=== PATIENT | female | born 1980 | race Caucasian/White ===

== ENCOUNTER 2022-05-27 15:39 | Emergency (ER) | payer OTHER, SELFPAY ==
[2022-05-27 15:52] VITALS: BP 120/64; PULSE 106; RESP 16; TEMP 36.8; O2SAT 99
--- NOTE | 2022-05-27 16:50 | ED.GENADULT ---
HPI - General Adult General Chief complaint: Upper Respiratory Infection Stated complaint: Sore throat Source: patient Mode of arrival: ambulatory Limitations: no limitations History of Present Illness HPI narrative: Patient presents for evaluation of sore throat since last night. No fever, chills, nausea, vomiting, cough, ear pain, shortness of breath or diarrhea. No recent sick contacts to her knowledge. She is not taking any medication to assist with her symptoms. She does not smoke. She has hyperthyroidism and is planning on having thyroidectomy. She has had strep in the past and this feels similar. No additional complaints or concerns. Related Data Allergies Allergy/AdvReac Type Severity Reaction Status Date / Time dimenhydrinate Allergy Swelling Verified 05/27/22 16:01 [From Dramamine] of Lip/Tongue/Throat diphenhydramine Allergy Swelling Verified 05/27/22 16:01 [From Benadryl] of Lip/Tongue/Throat Review of Systems Review of Systems: CONSTITUTIONAL: Denies fever, chills, or sweats. EYES: Denies visual changes, redness, or discharge. ENT: Reports sore throat. Denies rhinorrhea, congestion, or otalgia. CARDIOVASCULAR: Denies chest pain, palpitations, or edema. RESPIRATORY: Denies cough or dyspnea. GASTROINTESTINAL: Denies abdominal pain, nausea, vomiting, or diarrhea. GENITOURINARY: Denies dysuria or hematuria. SKIN: Denies rash or itching. MUSCULOSKELETAL: Denies back pain, joint pain, or myalgia. NEUROLOGIC: Denies headache, numbness, dizziness, or weakness. PSYCHIATRIC: Denies anxiety or depression. [facility] Past Medical History Medical History Hyperthyroidism Surgical History Surgical History No pertinent past surgical history Family History Family History Mother Family history non-contributory Social History Social History (Updated 05/27/22 @ 16:53 by LOIS Voss, ) Smoking status: Never smoker Alcohol intake: never Substance use: never Gender identity (if verbalized by the patient): Female Sexual Orientation (if Verbalized by the Patient): Straight or Heterosexual Exam Narrative: GENERAL: Well-appearing, well-nourished, and in no acute distress. HEAD: Normocephalic, atraumatic. EYES: PERRLA and EOMI. Exophthalmos noted ENT: Nares clear, no rhinorrhea or epistaxis. Mucous membranes moist. Posterior pharyngeal erythema without exudate. Uvula is midline. Bilateral TMs pearly argueta nonbulging NECK: Supple. No adenopathy or masses. No carotid bruits or JVD CHEST: Clear to auscultation. No respiratory distress. No wheezes rales or rhonchi HEART: Rate 104. Normal rhythm No murmur heard. Normal peripheral pulses. ABDOMEN: Soft, nontender, nondistended, normal active bowel sounds. EXTREMITIES: Normal range of motion. No edema. SKIN: Warm, dry, no rash. NEURO: No focal deficits. Alert and oriented x3. PSYCH: Anxious Course Course Emergency Course: This is a 42-year-old female who presented for evaluation sore throat. Unfortunately we do not have rapid strep testing available. Will send throat culture. Treat with augmentin. Follow up with primary provider. Increase hydration. OTC meds for symptom management. Go to ER for difficulty breathing or swallowing. Pt in agreement with plan of care. Level of Care: Express Care Visit Vital Signs Vital signs: Vital Signs Temperature 36.8 C 05/27/22 15:52 Pulse Rate 106 H 05/27/22 15:52 Respiratory Rate 16 05/27/22 15:52 Blood Pressure 120/64 05/27/22 15:52 Pulse Oximetry 99 05/27/22 15:52 Oxygen Delivery Room Air 05/27/22 15:52 Temperature 36.8 C 05/27/22 15:52 Pulse Rate 106 H 05/27/22 15:52 Respiratory Rate 16 05/27/22 15:52 Blood Pressure 120/64 05/27/22 15:52 Pulse Oximetry 99 05/27
== END 2022-05-27 16:56 | disposition home or self-care (01) ==
PROVIDERS: Emergency Provider Nurse Practitioner
DX: J02.9 Acute pharyngitis, unspecified (principal); E05.90 Thyrotoxicosis, unspecified without thyrotoxic crisis or storm
CPT/HCPCS: 87081; 99213; G0463

== ENCOUNTER 2022-10-15 13:31 | Emergency (ER) | payer OTHER, SELFPAY ==
[2022-10-15 13:36] VITALS: BP 130/66; PULSE 116; RESP 20; TEMP 37; O2SAT 100
[2022-10-15 13:51] VITALS: BP 130/66; PULSE 116; RESP 20; TEMP 37; O2SAT 100
--- NOTE | 2022-10-15 13:54 | ED.URI ---
HPI - URI/Sore Throat General Chief Complaint: Upper Respiratory Infection Stated Complaint: Cold / cough Time Seen by Provider: 10/15/22 13:54 Source: patient, RN notes reviewed and old records reviewed Mode of arrival: ambulatory Limitations: no limitations History of Present Illness HPI Narrative: 42 year old female who presents to [facility] with complaints of 2 week duration of cough which has increased in the past 3 days. Patient reports that she has cough so much that she is exhausted and has coughed so hard she has felt like she is going to pass out. Patient reports that son had Influenza B 3 weeks ago. Patient reports that she has taken OTC cough and cold medications with no improvement. Patient reports that she did do a home COVID test which was negative. Patient reports no known fevers. MD elicited complaint: cough, rhinorrhea and nasal congestion Pertinent past history: other (hyperthyroidism) Onset (ago): week(s) (2) Able to tolerate fluids by mouth: Yes Treatments prior to arrival: cold medicine (cough medication) Related Data Home Medications Medication Instructions Recorded Confirmed methimazole 10 mg tablet 10 mg PO BID 10/15/22 10/15/22 Allergies Allergy/AdvReac Type Severity Reaction Status Date / Time dimenhydrinate Allergy Swelling Verified 10/15/22 13:38 [From Dramamine] of Lip/Tongue/Throat diphenhydramine Allergy Swelling Verified 10/15/22 13:38 [From Benadryl] of Lip/Tongue/Throat Review of Systems Review of Systems: CONSTITUTIONAL:Reports malaise, no chills, sweats, or fever. EYES: Denies visual changes, redness, or discharge. ENT: Reports rhinorrhea, congestion, sinus pain, no otalgia and no sore throat. CARDIOVASCULAR: Denies chest pain, palpitations, or edema. RESPIRATORY: Reports cough.? Denies dyspnea. GASTROINTESTINAL: Denies abdominal pain, nausea, vomiting, diarrhea SKIN: Denies rash or itching. MUSCULOSKELETAL: Denies myalgia. NEUROLOGIC: Denies headache. All systems reviewed & are unremarkable except as noted in HPI and below PMFSH Past Medical History Medical History Hyperthyroidism Surgical History Surgical History No pertinent past surgical history Family History Family History Mother Family history non-contributory Social History Social History Smoking status: Never smoker Alcohol intake: never Substance use: never Living arrangements: with family Gender identity (if verbalized by the patient): Female Sexual Orientation (if Verbalized by the Patient): Straight or Heterosexual Comments At time of signature, agree with nursing past medical, surgical, social and family history. There is no relevant family history pertinent to the presenting complaint Exam Narrative: GENERAL: Well-appearing, well-nourished, and in no acute distress. HEAD: Normocephalic EYES: PERRLA, conjunctivae clear ENT: Nares clear, turbinates edematous and erythematous, clear discharge. Mucous membranes moist. TM pearly argueta with dull light reflex bilaterally; no tragal tenderness. Oropharynx erythematous without lesions. Tonsils not enlarged and without exudate, no drooling, no hoarseness, no trismus, uvula midline.post nasal drainage NECK: Supple thyroid enlargement CHEST: Clear to auscultation, breath sounds equal. No wheezing, rhonchi, rales, or stridor. No respiratory distress, speaks in full sentences.frequent cough SAO2 100% on room air HEART: Regular rate and rhythm. No murmur heard. SKIN: Warm, dry, no rash. NEURO: Alert and oriented x3. PSYCH: Normal mood and affect Course Course Emergency Course: Patient is aware of diagnosis, understands and agrees to treatment plan.? Anticipatory bill
== END 2022-10-15 14:11 | disposition home or self-care (01) ==
PROVIDERS: Emergency Provider Registered Nurse
DX: R05.1 Acute cough (principal); E05.90 Thyrotoxicosis, unspecified without thyrotoxic crisis or storm
CPT/HCPCS: 87804; 99213; G0463